=== PATIENT | female | born 1975 | race African-American/Black ===

== ENCOUNTER 2017-06-06 16:02 | Emergency (ER) | payer OTHER ==
[2017-06-06 16:11] VITALS: BP 99/62
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
== END 2017-06-06 18:36 | disposition home or self-care (01) ==
LOC: ED 16:02
DX: O26.893 Other specified pregnancy related conditions, third trimester (principal); S39.012A Strain of muscle, fascia and tendon of lower back, initial encounter; Z3A.28 28 weeks gestation of pregnancy; V49.9XXA Car occupant (driver) (passenger) injured in unspecified traffic accident, initial encounter; Y93.89 Activity, other specified; Y92.89 Other specified places as the place of occurrence of the external cause; Y99.8 Other external cause status
CPT/HCPCS: 99282

== ENCOUNTER 2017-06-06 18:50 | Outpatient (CLI) | payer OTHER ==
[2017-06-06 19:22] VITALS: BP 108/66
[2017-06-06] MEDS ORDERED: LACTATED RINGERS 500 ML IV ONE (19:35)
== END 2017-06-06 23:10 | disposition home or self-care (01) ==
LOC: TRG 18:50
PROVIDERS: ATTEND Obstetrics & Gynecology
DX: O09.523 Supervision of elderly multigravida, third trimester (principal); O47.03 False labor before 37 completed weeks of gestation, third trimester; Z3A.28 28 weeks gestation of pregnancy
CPT/HCPCS: 59025